=== PATIENT | female | born 1990 | race Caucasian/White ===

== ENCOUNTER 2017-05-05 21:35 | Emergency (ER) | payer OTHER ==
[~2017-05-05] VITALS: Ht 149.9 cm; Wt 50.8 kg
[2017-05-05 21:40] VITALS: BP 139/82
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
[2017-05-05] MEDS ORDERED: IBUPROFEN 600 MG TABLET. PO ONE (22:00)
[2017-05-05] MEDS ORDERED: ACETAMINOPHEN 500 MG TABLET PO ONE (22:00)
--- NOTE | 2017-05-05 22:07 | RAD ---
CT HEAD WO CONTRAST History: Injury from fall, hit left side of head, headache Comparison: None. Technique: Noncontrast CT imaging was performed of the head. Exposure: One or more of the following individualized dose reduction techniques were utilized for this examination: 1. Automated exposure control 2. Adjustment of the mA and/or kV according to patient size 3. Use of iterative reconstruction technique. Findings: There is some motion degradation. No acute extra-axial or parenchymal hemorrhage is identified. There is no significant intra-axial mass effect, midline shift, or extra-axial fluid collection. The patten-white differentiation of the major vascular territories is preserved. The ventricles, sulci, and cisterns are within normal limits in size and configuration. The mastoid air cells and the visualized paranasal sinuses are aerated. No acute calvarial abnormality is identified. Impression: 1. No acute intracranial abnormality is identified. Electronically signed by: Rob Pearce MD (05/05/2017 10:05 PM) [facility]
[2017-05-05] MEDS ORDERED: ACET325T9 PO (22:13)
[2017-05-05] MEDS ORDERED: NAPR275T59 PO (22:13)
--- NOTE | 2017-05-06 07:45 | RAD ---
2 views of each clavicle 05/05/2017 11:40 PM Indication: Bilateral clavicular pain following fall Comparison: None Findings: There is no fracture or dislocation identified. Articular surfaces are uninterrupted. Soft tissues are unremarkable. Impression: No evidence of acute osseous abnormality
== END 2017-05-05 22:19 | disposition home or self-care (01) ==
LOC: ER 21:35
DX: S43.402A Unspecified sprain of left shoulder joint, initial encounter (principal); S00.03XA Contusion of scalp, initial encounter; S20.212A Contusion of left front wall of thorax, initial encounter; S00.432A Contusion of left ear, initial encounter; S80.812A Abrasion, left lower leg, initial encounter; J45.909 Unspecified asthma, uncomplicated; W03.XXXA Other fall on same level due to collision with another person, initial encounter; Y93.89 Activity, other specified; Y99.8 Other external cause status; Y92.89 Other specified places as the place of occurrence of the external cause
CPT/HCPCS: 70450; 73000; 99284-25